=== PATIENT | female | born 1960 | race Caucasian/White ===

== ENCOUNTER 2019-03-07 06:17 | Day surgery (SDC) | payer OTHER ==
[2019-03-07] MEDS ORDERED: FENTAnyl 50 MCG/ML VIAL (08:14)
[2019-03-07] MEDS ORDERED: MIDAZOLAM 1 MG/ML 2 ML INJ ×2 (08:15)
== END 2019-03-08 08:28 | disposition home or self-care (01) ==
LOC: GIL 06:17
DX: Z12.11 Encounter for screening for malignant neoplasm of colon (principal); K64.1 Second degree hemorrhoids; E11.9 Type 2 diabetes mellitus without complications
CPT/HCPCS: 45378